=== PATIENT | male | born 1970 | race Caucasian/White ===

== ENCOUNTER 2022-10-14 13:00 | Emergency (ER) | payer OTHER ==
[2022-10-14] MEDS ORDERED: Sodium Chloride 0.9% 10 ML Syringe FLUSH PRN (13:31)
[2022-10-14 13:56] LABS: BASOPHILS ABSOLUTE AUTO 0.05 K/mm3 (0.01-0.08); EOSINOPHILS PERCENT AUTO 2.1 (0.8-7.0); HEMOGLOBIN 15.2 gm/dl (13.7-17.5); IMMATURE GRAN ABSOLUTE AUTO 0.02 K/mm3 (0.00-0.10); IMMATURE GRAN PERCENT AUTO 0.4 % (<=1.0); LYMPHOCYTES ABSOLUTE AUTO 1.39 K/mm3 (1.32-3.57); LYMPHOCYTES PERCENT AUTO 28.5 % (21.8-53.1); MEAN CORPUSCULAR HEMOGLOBIN 29.1 pg (25.7-32.2); MEAN PLATELET VOLUME 9.8 fl (9.4-12.3); MONOCYTES ABSOLUTE AUTO 0.36 K/mm3 (0.30-0.82); MONOCYTES PERCENT AUTO 7.4 % (5.3-12.2); NEUTROPHILS ABSOLUTE AUTO 2.95 K/mm3 (1.78-5.38); NEUTROPHILS PERCENT AUTO 60.6 % (34.0-67.9); PLATELET COUNT,PLT 228 K/mm3 (163-337); RED BLOOD CELL COUNT 5.23 M/mm3 (4.63-6.08); WHITE BLOOD CELL COUNT,WBC 4.87 K/mm3 (4.23-9.07)
[2022-10-14 14:14] LABS: A/G RATIO 1.5 (1-2); ALANINE AMINOTRANSFERASE,ALT 59 U/L (16-63); ALKALINE PHOSPHATASE 49 U/L (46-116); ANION GAP 9.8 (5-15); ASPARTATE AMNIOTRANSFERASE,AST 23 U/L (15-37); BLOOD UREA NITROGEN,BUN 12 mg/dL (7-18); BUN/CREATININE RATIO 8.6 (14-18); C-REACTIVE PROTEIN <0.2 mg/dL (<1.0); CALCIUM 8.8 mg/dL (8.5-10.1); CARBON DIOXIDE,CO2 30 mEq/L (21-32); CHLORIDE,CL 105 mEq/L (98-107); CREATININE 1.4 mg/dL (0.7-1.3); EST CRCL DRUG DOSING (CG) 79.55 mL/min; ESTIMATED GFR 61 mL/min (>60); GLUCOSE RANDOM 92 mg/dL (70-99); MAGNESIUM 2.3 mg/dL (1.8-2.4); POTASSIUM,K 3.8 mEq/L (3.5-5.1); PROTEIN TOTAL,TP 6.7 g/dl (6.4-8.2); SODIUM,NA 141 mEq/L (136-145); TROPONIN I HIGH SENSITIVITY 4 pg/mL (<=76); TSH 1.166 uIU/mL (0.358-3.74)
[2022-10-14 14:25] LABS: CORONAVIRUS COVID-19 NAA NEGATIVE (NEGATIVE); INFLUENZA A NAA NEGATIVE (NEGATIVE)
[2022-10-14] MEDS ORDERED: diphenhydrAMINE 50 MG/ML SDV IVPUSH ONE (16:18)
[2022-10-14] MEDS ORDERED: Meclizine 12.5 MG Tab PO ONE (16:18)
[2022-10-14] MEDS ORDERED: Metoclopramide 10 MG/2 ML SDV IVPUSH ONE (16:18)
== END 2022-10-14 17:26 | disposition home or self-care (01) ==
LOC: MERGE 13:00 → JD.ED 13:00
DX: R42 Dizziness and giddiness (principal); Z72.0 Tobacco use; Z20.822 Contact with and (suspected) exposure to COVID-19
CPT/HCPCS: 0240U; 36415; 70450; 71045; 80053; 83735; 84443; 84484; 85025; 85379; 86140; 93005; 96374; 96375; 99285; A9270; J1200; J2765; J3490; 93010; 99284